=== PATIENT | female | born 1990 | race Caucasian/White ===

== ENCOUNTER 2017-08-14 19:50 | Emergency (ER) | payer OTHER ==
[~2017-08-14] VITALS: Ht 167.6 cm; Wt 54.9 kg
--- NOTE | 2017-08-14 19:50 | NUR ---
BIB FRIEND C/O POSSIBLE ALLERGIC REACTION S/P SOUP AT 6AM. VSS NAD A/OX4 ABLE TO MAKE NEEDS KNOWN. WILL CONTINUE TO MONITOR FOR ANY CHANGES DURING THE SHIFT.
--- NOTE | 2017-08-14 19:51 | NUR ---
[facility] AT BEDSIDE FOR EVAL
[2017-08-14] MEDS ORDERED: diphenhydrAMINE HCL 50 MG CAPSULE PO ONE (20:30)
[2017-08-14] MEDS ORDERED: FAMOTIDINE (20 MG) 20 MG TABLET PO ONE (20:30)
[2017-08-14] MEDS ORDERED: diphenhydrAMINE HCL 50 MG CAPSULE ONE (20:36)
[2017-08-14] MEDS ORDERED: FAMOTIDINE (20 MG) 20 MG TABLET ONE (20:36)
--- NOTE | 2017-08-14 20:41 | NUR ---
PT OK TO DISCHARGE PER KRAIG NICK. Patient discharged to home in stable condition. Written and verbal after care instructions given. Patient verbalizes understanding of instruction.Patient is awake and alert to self, day, and place. PT ambulatory with a steady gait
[2017-08-14 20:42] VITALS: BP 128/70
== END 2017-08-14 20:43 | disposition home or self-care (01) ==
LOC: ER 19:53
DX: R21 Rash and other nonspecific skin eruption (principal); T78.1XXA Other adverse food reactions, not elsewhere classified, initial encounter
CPT/HCPCS: 99283; A4606; Q0163; Z7610